=== PATIENT | female | born 1990 | race Caucasian/White ===

== ENCOUNTER 2018-10-12 04:57 | Emergency (ER) | payer MEDICAID, OTHER ==
[~2018-10-12] VITALS: Ht 167.6 cm; Wt 75.0 kg
[2018-10-12 05:02] VITALS: BP 115/81
[2018-10-12] MEDS ORDERED: ketorolac trometh inj. 60 MG/2 ML VIAL IM ONE (06:20)
--- NOTE | 2018-10-12 06:46 | NUR ---
PATIENT AMBULATORY TO ER #11 WITH C/O LEFT UPPER BACK PAIN THAT STARTED YESTERDAY AND HAS BEEN INCREASING WITH MOVEMENT. DENIES TRAUMA OR STRAINING BACK RECENTLY. PAIN WITH MOVEMENT, STATING PAIN IS 8/10.
== END 2018-10-12 07:10 | disposition home or self-care (01) ==
LOC: ER 04:58
DX: M54.6 Pain in thoracic spine (principal); F11.90 Opioid use, unspecified, uncomplicated; Z88.5 Allergy status to narcotic agent; Z98.890 Other specified postprocedural states
CPT/HCPCS: 96372; 99283; J1885

== ENCOUNTER 2019-08-18 14:22 | Emergency (ER) | payer MEDICAID ==
[~2019-08-18] VITALS: Ht 167.6 cm; Wt 83.0 kg
[2019-08-18 14:58] VITALS: BP 140/91
--- NOTE | 2019-08-18 16:00 | NUR ---
Dorsalis pedal pulses present bilaterally via doppler.
[2019-08-18] MEDS ORDERED: CEPH-572 PO (18:50)
[2019-08-18] MEDS ORDERED: DOXY100C77 PO (18:51)
[2019-08-18] MEDS ORDERED: CLOT30CR24 TOP (18:52)
== END 2019-08-18 19:03 | disposition home or self-care (01) ==
LOC: ER 14:22
DX: L03.116 Cellulitis of left lower limb (principal); B35.3 Tinea pedis; F11.90 Opioid use, unspecified, uncomplicated; Z88.5 Allergy status to narcotic agent; Z79.2 Long term (current) use of antibiotics; Z79.899 Other long term (current) drug therapy
CPT/HCPCS: 93971; 99284

== ENCOUNTER 2019-09-26 18:30 | Emergency (ER) | payer MEDICAID ==
[~2019-09-26] VITALS: Ht 167.6 cm; Wt 81.8 kg
[~2019-09-26 18:30] MED LIST: CLOT30CR24 TOP
[2019-09-26 18:45] VITALS: BP 129/86
--- NOTE | 2019-09-26 19:07 | NUR ---
PT NIL WENT TO GET ICE FROM SOMEWHERE, HER FRIEND SAID SHE WILL BE BACK IN A FEW
== END 2019-09-26 20:10 | disposition home or self-care (01) ==
LOC: ER 18:30
DX: S93.402A Sprain of unspecified ligament of left ankle, initial encounter (principal); F11.90 Opioid use, unspecified, uncomplicated; Z88.5 Allergy status to narcotic agent; Z79.2 Long term (current) use of antibiotics; Z98.890 Other specified postprocedural states; V89.1XXA Person injured in unspecified nonmotor-vehicle accident, nontraffic, initial encounter; Y93.89 Activity, other specified; Y92.410 Unspecified street and highway as the place of occurrence of the external cause; Y99.8 Other external cause status
CPT/HCPCS: 29515; 73610; 99283

== ENCOUNTER 2019-10-26 21:27 | Emergency (ER) | payer MEDICAID ==
[~2019-10-26] VITALS: Ht 167.6 cm; Wt 81.8 kg
[2019-10-26 21:38] VITALS: BP 110/75
[2019-10-26] MEDS ORDERED: sulfamethoxazole/trimethoprim DS (800/160mg) tablet PO ONE (21:50)
[2019-10-26] MEDS ORDERED: BACDS PO (21:52)
== END 2019-10-26 21:59 | disposition home or self-care (01) ==
LOC: ER 21:28
DX: L02.416 Cutaneous abscess of left lower limb (principal); M79.605 Pain in left leg; M79.89 Other specified soft tissue disorders; F17.200 Nicotine dependence, unspecified, uncomplicated; F15.90 Other stimulant use, unspecified, uncomplicated; F11.90 Opioid use, unspecified, uncomplicated; Z72.89 Other problems related to lifestyle; Z88.5 Allergy status to narcotic agent; Z79.82 Long term (current) use of aspirin
CPT/HCPCS: 99283

== ENCOUNTER 2019-12-05 17:33 | Emergency (ER) | payer MEDICAID | END 2019-12-05 19:11 | disposition left against medical advice (07) | LOC: ER 17:33 | DX: B95.8 Unspecified staphylococcus as the cause of diseases classified elsewhere (principal); Z53.21 Procedure and treatment not carried out due to patient leaving prior to being seen by health care provider ==

== ENCOUNTER 2020-01-13 12:41 | Emergency (ER) | payer MEDICAID ==
[~2020-01-13] VITALS: Ht 172.7 cm; Wt 80.0 kg
[2020-01-13 12:50] VITALS: BP 145/96
[2020-01-13 14:24] LABS: BASOPHILS % (AUTO) 0.3 % (0-1); EOSINOPHILS % (AUTO) 0.3 % (0-6); HEMATOCRIT 39.3 % (35.0-45.0); HEMOGLOBIN 12.9 g/dl (12.0-16.0); LYMPHOCYTES # (AUTO) 1.2 X10'3 (1.1-4.8); LYMPHOCYTES % (AUTO) 12.6 % (21-51); MEAN CORPUSCULAR HEMOGLOBIN 27.2 PG (27.0-31.0); MEAN CORPUSCULAR HGB CONC 32.9 g/dL (33.0-36.5); MEAN CORPUSCULAR VOLUME 82.6 FL (78-98); MEAN PLATELET VOLUME 8.5 FL (7.4-10.4); MONOCYTES # (AUTO) 0.5 X10'3 (0-0.9); MONOCYTES % (AUTO) 5.1 % (2-12); NEUTROPHILS # (AUTO) 7.7 X10'3 (1.8-7.7); NEUTROPHILS % (AUTO) 81.7 % (42-75); PLATELET COUNT 246 X10'3 (140-440); RED BLOOD COUNT 4.75 X10'6 (4.20-5.60); WHITE BLOOD COUNT 9.4 X10'3 (4.5-11.0)
[2020-01-13 14:31] LABS: ALANINE AMINOTRANSFERASE 16 U/L (12-78); ALBUMIN 3.8 G/DL (3.4-5.0); ALBUMIN/GLOBULIN RATIO 0.9 (1.1-1.5); ALKALINE PHOSPHATASE 58 IU/L (46-116); ANION GAP 7 (8-16); ASPARTATE AMINO TRANSFERASE 14 U/L (10-37); BILIRUBIN,TOTAL 1.2 MG/DL (0.1-1.0); BLOOD UREA NITROGEN 14 MG/DL (7-18); BUN/CREATININE RATIO 17.1 (6.6-38.0); CALCIUM 9.3 MG/DL (8.5-10.1); CHLORIDE 104 MMOL/L (99-107); CREATININE 0.82 MG/DL (0.40-0.90); GLUCOSE 84 MG/DL (70-104); SODIUM 140 MMOL/L (135-145); TOTAL CARBON DIOXIDE 29.3 MMOL/L (24-32); TOTAL PROTEIN 7.9 G/DL (6.4-8.2); eGFR 84 ML/MIN
[2020-01-13] MEDS ORDERED: SULF1TAB49 PO (14:40)
--- NOTE | 2020-01-13 14:52 | NUR ---
pt seen and dc'd by provider
== END 2020-01-13 14:53 | disposition home or self-care (01) ==
LOC: ER 12:41
DX: L98.9 Disorder of the skin and subcutaneous tissue, unspecified (principal); R53.81 Other malaise; R22.40 Localized swelling, mass and lump, unspecified lower limb; F19.10 Other psychoactive substance abuse, uncomplicated; F15.90 Other stimulant use, unspecified, uncomplicated; F11.90 Opioid use, unspecified, uncomplicated; Z86.14 Personal history of Methicillin resistant Staphylococcus aureus infection; Z72.89 Other problems related to lifestyle; Z88.5 Allergy status to narcotic agent; Z79.899 Other long term (current) drug therapy
CPT/HCPCS: 36415; 71045; 80053; 85025; 99284

== ENCOUNTER 2020-08-27 13:39 | Emergency (ER) | payer MEDICAID ==
[~2020-08-27] VITALS: Ht 167.6 cm; Wt 84.7 kg
[2020-08-27 13:46] VITALS: BP 128/89
== END 2020-08-27 16:44 | disposition left against medical advice (07) ==
LOC: ER 13:40
DX: Z02.89 Encounter for other administrative examinations (principal); Z53.21 Procedure and treatment not carried out due to patient leaving prior to being seen by health care provider

== ENCOUNTER 2020-12-29 12:43 | Emergency (ER) | payer MEDICAID ==
[~2020-12-29] VITALS: Ht 167.6 cm; Wt 80.9 kg
[2020-12-29 14:07] LABS: BASOPHILS % (AUTO) 0.2 % (0-1); EOSINOPHILS # (AUTO) 0.3 X10'3 (0-0.9); EOSINOPHILS % (AUTO) 4.2 % (0-6); HEMATOCRIT 34.1 % (35.0-45.0); LYMPHOCYTES % (AUTO) 27.7 % (21-51); MEAN CORPUSCULAR HEMOGLOBIN 25.5 PG (27.0-31.0); MEAN CORPUSCULAR HGB CONC 32.2 g/dL (33.0-36.5); MEAN CORPUSCULAR VOLUME 79.2 FL (78-98); MEAN PLATELET VOLUME 8.1 FL (7.4-10.4); MONOCYTES # (AUTO) 0.6 X10'3 (0-0.9); NEUTROPHILS # (AUTO) 4.2 X10'3 (1.8-7.7); NEUTROPHILS % (AUTO) 59.9 % (42-75); PLATELET COUNT 271 X10'3 (140-440); RED CELL DISTRIBUTION WIDTH 16.6 % (11.5-14.5); WHITE BLOOD COUNT 7.1 X10'3 (4.5-11.0)
[2020-12-29 14:18] LABS: ALANINE AMINOTRANSFERASE 42 U/L (12-78); ALBUMIN 3.4 G/DL (3.4-5.0); ALBUMIN/GLOBULIN RATIO 0.9 (1.1-1.5); ALKALINE PHOSPHATASE 73 IU/L (46-116); ANION GAP 8 (8-16); ASPARTATE AMINO TRANSFERASE 59 U/L (10-37); BILIRUBIN,TOTAL 1.3 MG/DL (0.1-1.0); BLOOD UREA NITROGEN 13 MG/DL (7-18); CALCIUM 8.5 MG/DL (8.5-10.1); CHLORIDE 103 MMOL/L (99-107); CREATININE 0.81 MG/DL (0.40-0.90); GLUCOSE 93 MG/DL (70-104); POTASSIUM 3.8 MMOL/L (3.5-5.1); SODIUM 140 MMOL/L (135-145); TOTAL CARBON DIOXIDE 28.8 MMOL/L (24-32); TOTAL PROTEIN 7.2 G/DL (6.4-8.2); eGFR 84 ML/MIN
[2020-12-29 14:24] LABS: MAGNESIUM 2.2 MG/DL (1.5-2.4)
[2020-12-29 17:37] VITALS: BP 102/66
== END 2020-12-29 17:42 | disposition home or self-care (01) ==
LOC: ER 12:43
DX: R60.0 Localized edema (principal); R50.9 Fever, unspecified; F15.10 Other stimulant abuse, uncomplicated; F17.200 Nicotine dependence, unspecified, uncomplicated; F11.90 Opioid use, unspecified, uncomplicated; Z86.14 Personal history of Methicillin resistant Staphylococcus aureus infection; Z72.89 Other problems related to lifestyle; Z90.89 Acquired absence of other organs; Z88.5 Allergy status to narcotic agent; Z79.2 Long term (current) use of antibiotics
CPT/HCPCS: 36415; 71045; 80053; 83735; 83880; 84484; 85025; 99284

== ENCOUNTER 2021-09-02 01:21 | Emergency (ER) | payer MEDICAID ==
[~2021-09-02] VITALS: Ht 165.1 cm; Wt 81.8 kg
[2021-09-02 01:33] VITALS: BP 124/77
== END 2021-09-02 03:37 | disposition left against medical advice (07) ==
LOC: EEVIPCON 01:22 → ER 01:22
DX: R21 Rash and other nonspecific skin eruption (principal); Z53.21 Procedure and treatment not carried out due to patient leaving prior to being seen by health care provider

== ENCOUNTER 2021-09-02 04:32 | Emergency (ER) | payer MEDICAID ==
[~2021-09-02] VITALS: Ht 165.1 cm; Wt 81.8 kg
[2021-09-02 04:45] VITALS: BP 117/76
[2021-09-02] MEDS ORDERED: bacitracin 15gm ointment TP ONE (05:10)
== END 2021-09-02 05:32 | disposition home or self-care (01) ==
LOC: ER 04:33
DX: R23.4 Changes in skin texture (principal); F15.10 Other stimulant abuse, uncomplicated; Z88.5 Allergy status to narcotic agent; Z79.899 Other long term (current) drug therapy; F11.10 Opioid abuse, uncomplicated
CPT/HCPCS: 99282

== ENCOUNTER 2021-09-05 09:51 | Emergency (ER) | payer MEDICAID ==
[~2021-09-05] VITALS: Ht 165.1 cm; Wt 81.8 kg
[2021-09-05 10:07] VITALS: BP 137/89
[2021-09-05] MEDS ORDERED: PNV1TABL75 PO (10:23)
== END 2021-09-05 10:54 ==
LOC: ER 09:51
DX: O26.892 Other specified pregnancy related conditions, second trimester (principal); F15.90 Other stimulant use, unspecified, uncomplicated; F11.90 Opioid use, unspecified, uncomplicated; F19.90 Other psychoactive substance use, unspecified, uncomplicated; Z3A.20 20 weeks gestation of pregnancy; Z86.19 Personal history of other infectious and parasitic diseases; Z86.14 Personal history of Methicillin resistant Staphylococcus aureus infection; Z90.89 Acquired absence of other organs; Z72.89 Other problems related to lifestyle; Z88.5 Allergy status to narcotic agent; Z79.899 Other long term (current) drug therapy
CPT/HCPCS: 99283

== ENCOUNTER 2021-11-05 01:57 | Emergency (ER) | payer MEDICAID ==
[~2021-11-05] VITALS: Ht 167.6 cm; Wt 90.9 kg
[~2021-11-05 01:57] MED LIST changes: +PNV1TABL75 PO
[2021-11-05 02:18] VITALS: BP 119/85
[2021-11-05 03:03] LABS: URINE HCG POSITIVE (NEG)
[2021-11-05 03:12] LABS: CLARITY,URINE CLEAR (Clear); COLOR,URINE YELLOW (Yellow); GLUCOSE, URINE NEGATIVE (Neg); KETONES,URINE NEGATIVE (Neg); LEUKOCYTE ESTERASE ,URINE NEGATIVE (Neg); NITRITES, URINE NEGATIVE (Neg); OCCULT BLOOD,URINE NEGATIVE (Neg); PH,URINE 5.5 (4.8-8.0); PROTEIN,URINE NEGATIVE (Neg); UROBILINOGEN,URINE 0.2 E.U/dL (0.2-1.0)
[2021-11-05 03:18] LABS: UA COLLECTION TYPE CLN CATCH MIDSTREAM
[2021-11-05 03:32] LABS: URINE AMPHETAMINE SCREEN POSITIVE (Neg); URINE BARBITUATE SCREEN NEGATIVE (Neg); URINE BENZODIAZEPINES SCREEN NEGATIVE (Neg); URINE COCAINE SCREEN NEGATIVE (Neg); URINE METHADONE SCREEN NEGATIVE (Neg); URINE OPIATE SCREEN NEGATIVE (Neg); URINE PHENCYCLIDINE SCREEN NEGATIVE (Neg)
[2021-11-05 05:40] LABS: URINE CANNABINOID SCREEN NEGATIVE (Neg)
== END 2021-11-05 03:45 ==
LOC: ER 01:57
DX: Z34.90 Encounter for supervision of normal pregnancy, unspecified, unspecified trimester (principal); F15.20 Other stimulant dependence, uncomplicated; F17.200 Nicotine dependence, unspecified, uncomplicated; F11.90 Opioid use, unspecified, uncomplicated; Z88.5 Allergy status to narcotic agent
CPT/HCPCS: 80305; 81003; 81025; 99283

== ENCOUNTER 2022-09-06 09:39 | Emergency (ER) | payer MEDICAID | END 2022-09-06 10:12 | disposition left against medical advice (07) | LOC: ER 09:39 | DX: K04.7 Periapical abscess without sinus (principal); Z53.21 Procedure and treatment not carried out due to patient leaving prior to being seen by health care provider ==